=== PATIENT | female | born 1975 | race Caucasian/White ===

== ENCOUNTER 2016-12-18 03:05 | Emergency (ER) | payer BC, OTHER ==
[~2016-12-18] VITALS: Ht 172.7 cm; Wt 167.0 kg
[~2016-12-18 03:05] MED LIST: ALPR0.5T6 PO; ASPI-630 PO; CHOL500016 PO; CHOL500050 PO; CYCL5TAB PO; EMPA10TA PO; ERGO500027 PO; EZET1TAB35 PO; FLUC100T4 PO; FLUO10CA13 PO; FLUO20CA8 PO; FLUO20TA11 PO; FLUO40CA9 PO; FURO20TA3 PO; GABA-586 PO; HYDR-2680 PO; HYDR-2758 PO; HYDR-79 PO; LEVO500T59 PO; LIRA0.6P2 SQ; LOPE2TAB27 PO; METF500T9 PO; METR500T PO; MOME13HF2 IH; MUPI22OI TP; OMEP40CA5 PO; OXYC-323 PO; POTA10CA PO; POTA10TA10 PO; PRAM0.255 PO; PRAS25CA PO; PREGNENOLONE PO; PROG200C15 PO; PROG200C2 PO; THYR30TA PO; THYR60TA PO; TIOT18CA IH; TIZA4CAP PO; TIZA4TAB PO; TOPI200C PO; TOPI200T25 PO; UBID1CAP41 PO; VARE1TAB20 PO
--- NOTE | 2016-12-18 03:42 | PHYS DOC ---
General Chief Complaint: LOWER EXTREMITY EDEMA Stated Complaint: FEET SWELLING Time Seen by MD: 03:06 Source: patient, old records Exam Limitations: no limitations Problems: History of Present Illness Initial Comments Patient is a 41-year-old female who comes in the ED complaining of lower extremity swelling. Patient is morbidly obese and has long history of lower extremity swelling. She takes Lasix for this condition, she says today she noticed increased swelling in both legs with tenderness. She says tonight the swelling seemed to be more than normal and she had moderate to severe bilateral leg pain with activity. She denies cough or dyspnea on exertion or acute shortness of breath. Denies chest pain diaphoresis nausea vomiting arm or neck symptoms headache or focal weakness. No pre-arrival treatment patient states her sugars have remained stable and she has not missed any doses of her Lasix. She continues to smoke cigarettes about a half pack a day and she follows with Dr. Boston MCCORD. Onset: this morning Severity: moderate Pain/Injury Location: bilateral leg, bilateral foot, bilateral ankle Method of Injury: other Modifying Factors: worse with jarring, worse with movement, improves with rest Allergies: Coded Allergies: morphine (Verified Allergy, Intermediate, Itching, 08/10/16) cephalexin (Verified Allergy, Mild, vomiting, 08/10/16) Past Medical History Medical History: other (COPD, diabetes, diverticulitis, hypertension, GERD, hyperlipidemia, hypothyroidism, asthma, morbid obesity, venous insufficiency with lower extremity edema) Surgical History: other (appendectomy, cholecystectomy, hysterectomy, tonsillectomy, tubal ligation) Social History Smoker: cigarettes Alcohol: none Drugs: none Review of Systems Constitutional: denies chills, denies diaphoresis, denies fever, denies malaise Respiratory: denies cough, denies shortness of breath, denies wheezing Cardiovascular: denies chest pain, denies palpitations, denies syncope Gastrointestinal: denies abdominal pain, denies diarrhea, denies nausea, denies vomiting Genitourinary: denies dysuria, denies frequency, denies hematuria Musculoskeletal: see HPI, denies back pain, denies joint swelling, denies neck pain Psychiatric/Neurological: denies headache, denies numbness, denies paresthesia , denies weakness Physical Exam General Appearance: no apparent distress, obese HEENT: normal ENT inspection Neck: non-tender, supple Cardiovascular/Respiratory: normal peripheral pulses (3+ pitting lower extremity edema involving the lower legs no erythema/tenderness/Homans sign negative), no respiratory distress Gastrointestinal: non-tender, no organomegaly (morbidly obese) Back: no CVA tenderness, no vertebral tenderness Legs: bilateral leg normal range of motion, bilateral leg no evidence of injury , bilateral leg soft tissue tenderness, bilateral leg swelling Ankles: bilateral ankle normal range of motion, bilateral ankle no evidence of injury, bilateral ankle soft tissue tenderness, bilateral ankle swelling Feet: bilateral foot normal range of motion, bilateral foot no evidence of injury, bilateral foot soft tissue tenderness, bilateral foot swelling Neurologic/Tendon: normal sensation, normal motor functions, normal tendon functions, responds to pain, no evidence tendon injury Psychiatric: alert, oriented x 3 Skin: normal color, warm/dry Orders, Labs, Meds EKG: Normal sinus rhythm at 77 bpm, nonspecific ST-T changes no STEMI. Interpreted by me Chest AP: Technically difficult study due to body habitus, no acute cardiopulmonary process noted. Interpreted by me Pertinent labs: White blood cells 12.2, potassium 3.4, glucose 208, urinalysis with squamous epithelial contamination await culture and sensitivity. Patient received 40 mg of Lasix IV. Given her low normal potassium 20 mEq of Klor-Con given by mouth as the potassium will lower further with Lasix and insulin administration. Patient has not yet begun to [facility] however her vitals have remained normal and she has no new or progressive symptoms. Patient will be discharged home to [facility], she agrees to follow up with her doctor later this morning if her symptoms do not subside. She was advised to stop smoking. She expressed agreement and understanding of the treatment plan. Departure Time of Disposition: 04:58 Disposition: HOME, SELF-CARE Diagnosis: acute on chronic lower extremity edema Condition: GOOD Patient Instructions: Edema, [id number] Additional Instructions: Elevate your legs and wear MARY JANE hose until swelling subsides. Rest, no strenuous activity. Continue current meds. Follow up with your doctor or Friday for recheck. Return to ED with new or changing symptoms. ARIEL MUÑOZ DO Dec 18, 2016 03:42
[2016-12-18] MEDS: FUROSEMIDE 40 MG/4 ML VIAL IVP ONE (04:00)
[2016-12-18 04:04] LABS: BASO # 0.1 x10^3/uL (0.0-0.2); BASO % 1 % (0-3); EOS # 0.2 x10^3/uL (0.0-0.7); EOS % 2 % (0-3); HEMATOCRIT 45.5 % (36.0-47.0); HEMOGLOBIN 15.4 g/dL (12.0-15.5); LYMPH # 4.9 x10^3/uL (1.0-4.8); LYMPH % 40 % (24-48); MEAN CORPUSCULAR HEMOGLOBIN 32 pg (25-35); MEAN CORPUSCULAR HGB CONC 34 g/dL (31-37); MEAN CORPUSCULAR VOLUME 94 fL (79-100); MONO % 9 % (0-9); NEUT # 5.9 x10^3uL (1.8-7.7); NEUT % 48 % (31-73); PLATELET COUNT 252 x10^3/uL (140-400); RED BLOOD COUNT 4.85 x10^6/uL (3.50-5.40); RED CELL DISTRIBUTION WIDTH 13.7 % (11.5-14.5); WHITE BLOOD COUNT 12.2 x10^3/uL (4.0-11.0)
[2016-12-18 04:12] LABS: BACTERIA,URINE FEW /HPF (0-FEW); BILIRUBIN,URINE NEG (NEG); CLARITY,URINE HAZY; COLOR,URINE YELLOW; GLUCOSE,URINE 500 mg/dL (NEG); NITRITE,URINE NEG (NEG); RBC,URINE 0 /HPF (0-2); SQUAMOUS EPITHELIAL CELL,UR MANY /LPF; UROBILINOGEN,URINE 0.2 mg/dL (0.2 mg/dL)
[2016-12-18 04:27] LABS: ALBUMIN 3.6 g/dL (3.4-5.0); ALBUMIN/GLOBULIN RATIO 0.9 (1.0-1.7); CREATININE 0.8 mg/dL (0.6-1.0); GFR 78.3; MAGNESIUM 1.8 mg/dL (1.8-2.4); POTASSIUM 3.4 mmol/L (3.5-5.1); TOTAL BILIRUBIN 0.5 mg/dL (0.2-1.0); TOTAL PROTEIN 7.8 g/dL (6.4-8.2)
[2016-12-18 04:50] VITALS: BP 119/65
[2016-12-18] MEDS: POTASSIUM CHLORIDE 20 MEQ TABLET.ER. PO ONE (04:53)
--- NOTE | 2016-12-18 07:15 | RAD ---
AP chest, 12/18/2016: History: Lower extremity edema The heart size and pulmonary vascularity are normal. The lungs are clear. There is no evidence of pleural fluid. IMPRESSION: No acute cardiopulmonary abnormality is detected.
--- NOTE | 2016-12-19 11:04 | EKG ---
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
== END 2016-12-18 05:06 | disposition home or self-care (01) ==
LOC: ER 03:05
DX: R60.0 Localized edema (principal); J44.9 Chronic obstructive pulmonary disease, unspecified; E11.9 Type 2 diabetes mellitus without complications; I10 Essential (primary) hypertension; K21.9 Gastro-esophageal reflux disease without esophagitis; E78.5 Hyperlipidemia, unspecified; E03.9 Hypothyroidism, unspecified; E66.01 Morbid (severe) obesity due to excess calories; I87.2 Venous insufficiency (chronic) (peripheral); F17.210 Nicotine dependence, cigarettes, uncomplicated; Z68.43 Body mass index [BMI] 50.0-59.9, adult; Z88.5 Allergy status to narcotic agent; Z88.1 Allergy status to other antibiotic agents
CPT/HCPCS: 36415; 71010; 80053; 81001; 82550; 82947; 83735; 83880; 84484; 85027; 87086; 93005; 96374; 99285; J1940

== ENCOUNTER 2017-03-13 16:42 | Emergency (ER) | payer OTHER ==
[~2017-03-13] VITALS: Ht 172.7 cm; Wt 156.9 kg
[2017-03-13] MEDS ORDERED: IV NORMAL SALINE 1,000ML 1,000 ML IV SCH (17:42)
[2017-03-13] MEDS ORDERED: CONTRAST GIVEN MC PRN (18:00)
[2017-03-13] MEDS ORDERED: IOHEXOL 300 MG/ML 75 ML VIAL. IV ONE (18:15)
[2017-03-13 18:18] LABS: BLOOD UREA NITROGEN 8 mg/dL (7-20); CREATINE KINASE 98 U/L (26-192)
[2017-03-13] MEDS: HYDROmorphone PF 1 MG/ML DISP.SYRIN IV/SQ PRN ×2 (18:41→19:38)
[2017-03-13 18:45] LABS: CALCIUM 8.9 mg/dL (8.5-10.1); CREATININE 0.9 mg/dL (0.6-1.0); GFR 68.3; POTASSIUM 3.9 mmol/L (3.5-5.1)
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
[2017-03-13 20:15] VITALS: BP 133/71
[2017-03-13 21:33] LABS: BACTERIA,URINE MOD /HPF (0-FEW); BILIRUBIN,URINE NEG (NEG); CLARITY,URINE CLOUDY; COLOR,URINE YELLOW; GLUCOSE,URINE NEG (NEG); NITRITE,URINE NEG (NEG); SQUAMOUS EPITHELIAL CELL,UR MANY /LPF; UROBILINOGEN,URINE 0.2 mg/dL (0.2 mg/dL)
[2017-03-13 21:37] LABS: HYALINE CASTS, URINE FEW /HPF
[2017-03-13] MEDS ORDERED: KETOROLAC 30 MG/ML VIAL. IV ONE (22:00)
[2017-03-13] MEDS ORDERED: ORPHENADRINE CITRATE 60 MG/2 ML VIAL. IV ONE (22:00)
[2017-03-13] MEDS ORDERED: fentaNYL PF 100 MCG/2 ML VIAL IM ONE (22:00)
[2017-03-13] MEDS ORDERED: HYDR-79 PO (22:07)
[2017-03-13] MEDS ORDERED: CYCL5TAB PO (22:07)
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
== END 2017-03-13 22:25 | disposition home or self-care (01) ==
LOC: ER 16:42
DX: S09.90XA Unspecified injury of head, initial encounter (principal); S16.1XXA Strain of muscle, fascia and tendon at neck level, initial encounter; S50.02XA Contusion of left elbow, initial encounter; E03.9 Hypothyroidism, unspecified; E11.9 Type 2 diabetes mellitus without complications; E78.5 Hyperlipidemia, unspecified; I10 Essential (primary) hypertension; J44.9 Chronic obstructive pulmonary disease, unspecified; K21.9 Gastro-esophageal reflux disease without esophagitis; N39.0 Urinary tract infection, site not specified; F32.9 Major depressive disorder, single episode, unspecified; M19.90 Unspecified osteoarthritis, unspecified site; F17.210 Nicotine dependence, cigarettes, uncomplicated; Z88.5 Allergy status to narcotic agent; Z88.1 Allergy status to other antibiotic agents; V89.2XXA Person injured in unspecified motor-vehicle accident, traffic, initial encounter; Y93.89 Activity, other specified; Y99.8 Other external cause status; Y92.488 Other paved roadways as the place of occurrence of the external cause
CPT/HCPCS: 36415; 70450; 71010; 72125; 73080; 74177; 80048; 81001; 82550; 84520; 87086; 96361; 96372; 96374; 96375; 96376; 99285; J1170; J1885; J2360; J3010; Q9967; J7030

== ENCOUNTER 2017-03-27 21:52 | Emergency (ER) | payer OTHER ==
[~2017-03-27] VITALS: Ht 172.7 cm; Wt 167.0 kg
[2017-03-27] MEDS ORDERED: ONDANSETRON PF 4 MG/2 ML VIAL. IV ONE (23:00)
[2017-03-27] MEDS ORDERED: IV NORMAL SALINE 1,000ML 1,000 ML IV SCH (23:00)
[2017-03-28] MEDS ORDERED: CONTRAST GIVEN MC PRN (00:30)
[2017-03-28] MEDS ORDERED: IOHEXOL 300 MG/ML 75 ML VIAL. IV ONE (00:30)
[2017-03-28 00:33] LABS: BASO % 1 % (0-3); EOS # 0.2 x10^3/uL (0.0-0.7); EOS % 2 % (0-3); HEMATOCRIT 48.4 % (36.0-47.0); HEMOGLOBIN 16.9 g/dL (12.0-15.5); LYMPH # 1.3 x10^3/uL (1.0-4.8); LYMPH % 12 % (24-48); MEAN CORPUSCULAR HEMOGLOBIN 33 pg (25-35); MEAN CORPUSCULAR HGB CONC 35 g/dL (31-37); MEAN CORPUSCULAR VOLUME 94 fL (79-100); MONO # 0.5 x10^3/uL (0.0-1.1); MONO % 5 % (0-9); NEUT # 8.5 x10^3uL (1.8-7.7); NEUT % 81 % (31-73); PLATELET COUNT 210 x10^3/uL (140-400); RED BLOOD COUNT 5.16 x10^6/uL (3.50-5.40); RED CELL DISTRIBUTION WIDTH 13.4 % (11.5-14.5); WHITE BLOOD COUNT 10.5 x10^3/uL (4.0-11.0)
[2017-03-28 00:40] LABS: ALBUMIN 3.4 g/dL (3.4-5.0); ALBUMIN/GLOBULIN RATIO 0.8 (1.0-1.7); CALCIUM 9.1 mg/dL (8.5-10.1); GFR 60.5; POTASSIUM 3.8 mmol/L (3.5-5.1); TOTAL BILIRUBIN 0.6 mg/dL (0.2-1.0); TOTAL PROTEIN 7.6 g/dL (6.4-8.2)
[2017-03-28] MEDS ORDERED: KETOROLAC 30 MG/ML VIAL. ONE (00:42)
[2017-03-28] MEDS ORDERED: KETOROLAC 60 MG/2 ML VIAL. IM ONE (00:45)
[2017-03-28 01:04] LABS: BILIRUBIN,URINE NEG (NEG); CLARITY,URINE HAZY; COLOR,URINE AMBER; GLUCOSE,URINE NEG (NEG); NITRITE,URINE NEG (NEG); RBC,URINE OCC /HPF (0-2); UROBILINOGEN,URINE 0.2 mg/dL (0.2 mg/dL)
[2017-03-28 01:05] LABS: BACTERIA,URINE FEW /HPF (0-FEW); SQUAMOUS EPITHELIAL CELL,UR MOD /LPF; WBC,URINE OCC /HPF (0-4); YEAST,URINE PRESENT /HPF
[2017-03-28] MEDS ORDERED: ONDA4TAB12 SL (01:22)
[2017-03-28] MEDS ORDERED: HYOS0.1265 SL (01:22)
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
--- NOTE | 2017-03-28 01:29 | RAD ---
CT abdomen and pelvis without contrast 03/27/2017 CLINICAL INDICATION: Abdominal pain, nausea, vomiting and diarrhea. COMPARISON: CT abdomen and pelvis 03/13/2017 TECHNIQUE: Multiple CT images of the abdomen and pelvis were obtained without contrast according to standard protocol. *One or more of the following individualized dose reduction techniques were utilized for this examination: 1. Automated exposure control. 2. Adjustment of the mA and/or kV according to patient size. 3. Use of iterative reconstruction technique. Abdomen and pelvis findings: Heart size is normal and visualized lung bases are clear. There is mild diffuse hepatic steatosis with a few punctate calcified granulomas. Prior cholecystectomy. Spleen is normal in size with multiple punctate splenic calcified granulomas. Unenhanced contours of the adrenal glands, pancreas are grossly unremarkable. 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 Small and large bowel loops are normal in caliber without obstruction. Postsurgical changes at the base of the cecum compatible with prior appendectomy. No bowel obstruction. No pneumoperitoneum. No intra-abdominal loculated gas/fluid collection. Mild distended unopacified urinary bladder unremarkable. Prior hysterectomy with the vaginal cuff within normal limits. There are no destructive osseous lesions. IMPRESSION: No noncontrast evidence of acute abdominal or pelvic process. Electronically signed by: Colin Hirsch MD (03/28/2017 1:26 AM) [facility]
[2017-03-28 01:35] VITALS: BP 132/89
== END 2017-03-28 01:45 | disposition home or self-care (01) ==
LOC: ER 21:52
DX: K52.9 Noninfective gastroenteritis and colitis, unspecified (principal); G89.29 Other chronic pain; E03.9 Hypothyroidism, unspecified; E11.9 Type 2 diabetes mellitus without complications; E78.00 Pure hypercholesterolemia, unspecified; J44.9 Chronic obstructive pulmonary disease, unspecified; Z90.49 Acquired absence of other specified parts of digestive tract; Z90.710 Acquired absence of both cervix and uterus; Z88.1 Allergy status to other antibiotic agents; Z88.5 Allergy status to narcotic agent
CPT/HCPCS: 36415; 74176; 80053; 81001; 83690; 85025; 96372; 99285; J1885

== ENCOUNTER 2017-08-16 22:47 | Emergency (ER) | payer OTHER ==
[~2017-08-16] VITALS: Ht 160 cm; Wt 168.6 kg
[~2017-08-16 22:47] MED LIST changes: +HYOS0.1265 SL; +ONDA4TAB12 SL; -TOPI200C PO; +TOPI200C6 PO
--- NOTE | 2017-08-16 23:19 | ED.ADGEN ---
Past History Past Medical History: Asthma, COPD, Diverticulitis, Diabetes, Gallstones, High Cholesterol, Hypothyroid, Other Past Surgical History: Appendectomy, Cholecystectomy, Colectomy, Hysterectomy, Tonsillectomy, Other Alcohol Use: None Drug Use: None Adult General Chief Complaint Chief Complaint " I ve not been right since Fri.. I seen Dr Mead... he said I had a virus... I ve been exposed to Strept with my son. and this virus... .. and I am getting short of breath..tired, dizzy, chills, sore throat..." HPI HPI Patient is a 42 year old female who presents with above hx and complaints dizzy , fever or chills, myalgia, arthralgia, malaise, pharyngitis, and fatigue. Patient has been exposed to strep through her son. No recent travel. Hx. of COPD, DM, Asthma, HTN, Elevated Cholesterol, Arthritis . Patient normally follows with Dr. Mead . Review of Systems Review of Systems Constitutional: Hx fever or chills [] Eyes: Denies change in visual acuity, redness, or eye pain [] HENT: Hx. of nasal congestion and sore throat [] Respiratory: Hx of cough and wheezing Cardiovascular: No additional information not addressed in HPI [] GI: Denies abdominal pain, nausea, vomiting, bloody stools or diarrhea [] : Denies dysuria or hematuria [] Musculoskeletal: Chronic back pain or joint pain [] Integument: Denies rash or skin lesions [] Neurologic: Denies headache, focal weakness or sensory changes [] Endocrine: Denies polyuria or polydipsia [] All other systems were reviewed and found to be within normal limits, except as documented in this note. Family History Family History Son with Strept. Current Medications Current Medications Current Medications Medications (Trade) Dose Ordered Sig/Jack Start Time Stop Time Status Last Admin Dose Admin Amoxicillin (Amoxil) 500 mg 1X ONCE 08/17/17 02:30 08/17/17 03:36 DC 08/17/17 03:03 500 MG Aspirin (Children'S Aspirin) 324 mg 1X ONCE 08/17/17 00:15 08/17/17 00:20 DC 08/17/17 03:04 324 MG Diphenhydramine HCl (Benadryl) 50 mg 1X ONCE 08/17/17 02:30 2/11/18 03:36 DC 08/17/17 03:04 50 MG Magnesium Hydroxide (Milk Of Magnesia) 2,400 mg 1X ONCE 08/17/17 04:30 08/17/17 04:57 DC 08/17/17 04:29 2,400 MG Prednisone (Prednisone) 60 mg 1X ONCE 08/17/17 02:30 08/17/17 03:36 DC 08/17/17 03:04 60 MG See Nursing for home meds Allergies Allergies Allergies Coded Allergies Type Severity Reaction Last Updated Verified morphine Allergy Intermediate Itching 08/10/16 Yes cephalexin Allergy Mild vomiting 08/10/16 Yes Physical Exam Physical Exam Constitutional: Moderately acute distress, non-toxic appearance. [] HENT: Normocephalic, atraumatic, bilateral external ears normal, oropharynx moist, injected pharynx, no oral exudates, nose rhinorrhea Eyes: PERRLA, EOMI, conjunctiva normal, no discharge. [] Neck: Normal range of motion, no tenderness, supple, no stridor. [] Cardiovascular:Heart rate regular rhythm, no murmur [] Lungs & Thorax: Bilateral breath sounds clear to auscultation [] Abdomen: Bowel sounds normal, soft, no tenderness, no masses, no pulsatile masses. Obese. Old surgical scars Skin: Warm, dry, no erythema, no rash. [] Back: No tenderness, no CVA tenderness. [] Extremities: No tenderness, no cyanosis, no clubbing, ROM intact, no edema. [] Neurologic: Alert and oriented X 3, normal motor function, normal sensory function, no focal deficits noted. [] Psychologic: Affect anxious, judgement normal, mood normal. [] Current Patient Data Vital Signs Vital Signs Date Time Temp Pulse Resp B/P (MAP) Pulse Ox O2 Delivery O2 Flow Rate FiO2 08/17/17 04:50 98.2 99 20 124/60 (81) 93 Room Air Lab Results Laboratory Tests Test 08/17/17 02:45 08/17/17 03:00 08/17/17 03:29 08/17/17 03:49 Urine Opiates Screen Neg (NEG) Urine Methadone Screen Neg (NEG) Urine Barbiturates Neg (NEG) Urine Phencyclidine Screen Neg (NEG) Urine Amphetamine/Methamphetamine Neg (NEG) Urine Benzodiazepines Screen Neg (NEG) Urine Cocaine Screen Neg (NEG) Urine Cannabinoids Screen Neg (NEG) Urine Ethyl Alcohol Neg (NEG) Influenza Type A (Rapid) Negative (NEGATIVE) Influenza Type B (Rapid) Negative (NEGATIVE) Group A Streptococcus Rapid Positive (NEGATIVE) Urine Collection Type Void Urine Color Yellow Urine Clarity Clear Urine pH 5.0 Urine Specific [place] <=1.005 Urine Protein Neg (NEG-TRACE) Urine Glucose (UA) Neg mg/dL (NEG) Urine Ketones (Stick) Neg mg/dL (NEG) Urine Blood Trace (NEG) Urine Nitrite Neg (NEG) Urine Bilirubin Neg (NEG) Urine Urobilinogen Dipstick 0.2 mg/dL (0.2 mg/dL) Urine Leukocyte Esterase Neg (NEG) Urine RBC 0 /HPF (0-2) Urine WBC 0 /HPF (0-4) Urine Squamous Epithelial Cells Occ /LPF Urine Bacteria 0 /HPF (0-FEW) Serum Test, Qualitative Negative (NEG) Sodium Level 138 mmol/L (136-145) Potassium Level 3.7 mmol/L (3.5-5.1) Chloride Level 101 mmol/L (98-107) Carbon Dioxide Level 28 mmol/L (21-32) Anion Gap 9 (6-14) Blood Urea Nitrogen 12 mg/dL (7-20) Creatinine 0.8 mg/dL (0.6-1.0) Estimated GFR (Cockcroft-Gault) 77.9 Glucose Level 253 mg/dL (70-99) H Calcium Level 8.4 mg/dL (8.5-10.1) L Magnesium Level 1.6 mg/dL (1.8-2.4) L Total Bilirubin 0.2 mg/dL (0.2-1.0) Direct Bilirubin < 0.1 mg/dL (0.0-0.2) Aspartate Amino Transferase (AST) 27 U/L (15-37) Alanine Aminotransferase (ALT) 63 U/L (14-59) H Alkaline Phosphatase 83 U/L (46-116) Creatine Kinase 64 U/L (26-192) Creatine Kinase MB (Mass) < 0.5 ng/mL (0.0-3.6) Creatine Kinase MB Relative Index 0.8 % (0-4) Troponin I Quantitative < 0.017 ng/mL (0-0.055) FO-Xls-G-Type Natriuretic Peptide 39 pg/mL (0-124) Total Protein 6.5 g/dL (6.4-8.2) Albumin 3.2 g/dL (3.4-5.0) L Lipase 146 U/L (73-393) White Blood Count 9.2 x10^3/uL (4.0-11.0) Red Blood Count 4.56 x10^6/uL (3.50-5.40) Hemoglobin 14.7 g/dL (12.0-15.5) Hematocrit 42.7 % (36.0-47.0) Mean Corpuscular Volume 94 fL (79-100) Mean Corpuscular Hemoglobin 32 pg (25-35) Mean Corpuscular Hemoglobin Concent 34 g/dL (31-37) Red Cell Distribution Width 13.8 % (11.5-14.5) Platelet Count 232 x10^3/uL (140-400) Neutrophils (%) (Auto) 48 % (31-73) Lymphocytes (%) (Auto) 43 % (24-48) Monocytes (%) (Auto) 7 % (0-9) Eosinophils (%) (Auto) 2 % (0-3) Basophils (%) (Auto) 1 % (0-3) Neutrophils # (Auto) 4.4 x10^3uL (1.8-7.7) Lymphocytes # (Auto) 4.0 x10^3/uL (1.0-4.8) Monocytes # (Auto) 0.6 x10^3/uL (0.0-1.1) Eosinophils # (Auto) 0.2 x10^3/uL (0.0-0.7) Basophils # (Auto) 0.1 x10^3/uL (0.0-0.2) Prothrombin Time 10.1 SEC (9.4-11.4) Prothrombin Time INR 1.0 (0.9-1.1) PTT 22 SEC (23-33) L D-Dimer (Shanita) 0.32 mg/L (0.00-0.50) EKG EKG My interpretation EKG shows a sinus rhythm at 72 bpm. No acute morphology[] Radiology/Procedures Radiology/Procedures My interpretation of chest x-ray shows no acute cardiopulmonary findings. Some mild cephalization. Linear atelectasis atelectasis[] Course & Med Decision Making Course & Med Decision Making Pertinent Labs and Imaging studies reviewed. (See chart for details). Keep follow up with primary . Complete a course of doxycycline, if pharyngitis does not resolved take Amoxicillin 500 three times a day. Prednisone 50 mg day. Benadryl 50 up 4 x day. Albuterol four times a day. Gargle with Listerine 4 x day. [] Final Impression Final Impression 1. Dizzy[] 2. Strept. Pharyngitis 3. DM- 253 glu 4. Hypomagnesium 5. Malnutrition Alb. 3.2 Problems: Dragon Disclaimer Dragon Disclaimer This electronic medical record was generated, in whole or in part, using a voice recognition dictation system. SYL HARPER MD Aug 16, 2017 23:19
[2017-08-17] MEDS ORDERED: ASPIRIN 81 MG TAB.CHEW PO ONE (00:15)
--- NOTE | 2017-08-17 01:52 | RAD ---
INDICATION: Headache, dizziness, leg swelling today. No prior exams for comparison
COMPARISON: March 13, 2017 TECHNIQUE: Axial CT images obtained through the head without intravenous contrast. One or more of the following individualized dose reduction techniques were utilized for this examination: 1. Automated exposure control; 2. Adjustment of the mA and/or kV according to patient size; 3. Use of iterative reconstruction technique. FINDINGS: No intracranial hemorrhage. No midline shift. Basal cisterns patent. Ventricles and sulci are unremarkable. No acute osseous abnormality. Orbits and paranasal sinuses unremarkable. IMPRESSION: 1. No acute intracranial hemorrhage. Electronically signed by: Héctor Nash MD (08/17/2017 1:49 AM) [email or web address]
--- NOTE | 2017-08-17 01:57 | EKG ---
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
[2017-08-17] MEDS ORDERED: predniSONE 20 MG TABLET PO ONE (02:30)
[2017-08-17] MEDS ORDERED: AMOXICILLIN 250 MG CAPSULE PO ONE (02:30)
[2017-08-17] MEDS ORDERED: diphenhydrAMINE HCL 25 MG CAPSULE PO ONE (02:30)
[2017-08-17 03:08] LABS: INFLUENZA A PATIENT NEGATIVE (NEGATIVE); INFLUENZA B PATIENT NEGATIVE (NEGATIVE)
[2017-08-17 03:25] LABS: BARBITURATES NEG (NEG); BENZODIAZEPINES NEG (NEG); CANNABINOIDS NEG (NEG); COCAINE NEG (NEG); METHADONE NEG (NEG); OPIATES NEG (NEG); PHENCYCLIDINE NEG (NEG)
[2017-08-17 03:31] LABS: AMPHETAMINE/METHAMPHETAMINE NEG (NEG)
[2017-08-17 03:35] LABS: BACTERIA,URINE 0 /HPF (0-FEW); BILIRUBIN,URINE NEG (NEG); CLARITY,URINE CLEAR; COLOR,URINE YELLOW; GLUCOSE,URINE NEG (NEG); NITRITE,URINE NEG (NEG); RBC,URINE 0 /HPF (0-2); SQUAMOUS EPITHELIAL CELL,UR OCC /LPF; UROBILINOGEN,URINE 0.2 mg/dL (0.2 mg/dL); WBC,URINE 0 /HPF (0-4)
[2017-08-17 03:37] LABS: PREG TEST PT QUAL NEGATIVE (NEG)
[2017-08-17 04:02] LABS: ALBUMIN 3.2 g/dL (3.4-5.0); ALK PHOS 83 U/L (46-116); ALT (SGPT) 63 U/L (14-59); ANION GAP 9 (6-14); AST (SGOT) 27 U/L (15-37); BLOOD UREA NITROGEN 12 mg/dL (7-20); CALCIUM 8.4 mg/dL (8.5-10.1); CARBON DIOXIDE 28 mmol/L (21-32); CHLORIDE 101 mmol/L (98-107); CREATINE KINASE 64 U/L (26-192); CREATININE 0.8 mg/dL (0.6-1.0); GFR 77.9; GLUCOSE 253 mg/dL (70-99); LIPASE 146 U/L (73-393); MAGNESIUM 1.6 mg/dL (1.8-2.4); POTASSIUM 3.7 mmol/L (3.5-5.1); SODIUM 138 mmol/L (136-145); TOTAL BILIRUBIN 0.2 mg/dL (0.2-1.0); TOTAL PROTEIN 6.5 g/dL (6.4-8.2)
[2017-08-17 04:12] LABS: DIRECT BILIRUBIN < 0.1 mg/dL (0.0-0.2)
[2017-08-17] MEDS ORDERED: ONDA8TAB12 PO (04:16)
[2017-08-17] MEDS ORDERED: AMOX500C PO (04:16)
[2017-08-17] MEDS ORDERED: HYDR-79 PO (04:16)
[2017-08-17] MEDS ORDERED: PRED50TA PO (04:16)
[2017-08-17] MEDS ORDERED: ALBU18HF IH (04:16)
[2017-08-17 04:25] LABS: BASO # 0.1 x10^3/uL (0.0-0.2); BASO % 1 % (0-3); EOS # 0.2 x10^3/uL (0.0-0.7); EOS % 2 % (0-3); HEMATOCRIT 42.7 % (36.0-47.0); HEMOGLOBIN 14.7 g/dL (12.0-15.5); LYMPH % 43 % (24-48); MEAN CORPUSCULAR HEMOGLOBIN 32 pg (25-35); MEAN CORPUSCULAR HGB CONC 34 g/dL (31-37); MEAN CORPUSCULAR VOLUME 94 fL (79-100); MONO # 0.6 x10^3/uL (0.0-1.1); MONO % 7 % (0-9); NEUT # 4.4 x10^3uL (1.8-7.7); NEUT % 48 % (31-73); PLATELET COUNT 232 x10^3/uL (140-400); RED BLOOD COUNT 4.56 x10^6/uL (3.50-5.40); RED CELL DISTRIBUTION WIDTH 13.8 % (11.5-14.5); WHITE BLOOD COUNT 9.2 x10^3/uL (4.0-11.0)
[2017-08-17] MEDS ORDERED: MAGNESIUM HYDROXIDE 2,400 MG/30 ML ORAL.SUSP. PO ONE (04:30)
[2017-08-17 04:50] VITALS: BP 124/60
--- NOTE | 2017-08-17 08:31 | RAD ---
PA AND LATERAL CHEST RADIOGRAPH Clinical Indication: dyspnea. Comparison: AP chest 03/13/2017. Findings: The cardiomediastinal silhouette is normal. Pulmonary vasculature is normal. There is minimal linear scarring in the lingula. The lungs are clear. No pleural effusion or pneumothorax is seen. There is no acute bone abnormality. IMPRESSION: No acute cardiopulmonary process.
== END 2017-08-17 04:54 | disposition home or self-care (01) ==
LOC: ER 22:47
DX: R42 Dizziness and giddiness (principal); J02.0 Streptococcal pharyngitis; E11.9 Type 2 diabetes mellitus without complications; E83.42 Hypomagnesemia; E46 Unspecified protein-calorie malnutrition; J44.9 Chronic obstructive pulmonary disease, unspecified; E78.00 Pure hypercholesterolemia, unspecified; E03.9 Hypothyroidism, unspecified; I10 Essential (primary) hypertension; G89.29 Other chronic pain; Z88.5 Allergy status to narcotic agent; Z88.1 Allergy status to other antibiotic agents
CPT/HCPCS: 36415; 70450; 71046; 80048; 80076; 80307; 81001; 82553; 83690; 83735; 83880; 84443; 84484; 84703; 85025; 85379; 85610; 85730; 87040; 87804; 87880; 93005; 99285; J7512; Q0163; G0479

== ENCOUNTER 2018-04-12 00:25 | Emergency (ER) | payer OTHER ==
[~2018-04-12] VITALS: Ht 160 cm; Wt 160.2 kg
[~2018-04-12 00:25] MED LIST changes: +ALBU18HF IH; +AMOX500C PO; +ONDA8TAB12 PO; +PRED50TA PO
[2018-04-12] MEDS ORDERED: IBUP800T19 PO (00:56)
--- NOTE | 2018-04-12 01:09 | PHYS DOC ---
Past History Past Medical History: Asthma, COPD, Diverticulitis, Diabetes, Gallstones, High Cholesterol, Hypothyroid, Other Past Surgical History: Appendectomy, Cholecystectomy, Colectomy, Hysterectomy, Tonsillectomy Alcohol Use: None Drug Use: None Adult General Chief Complaint Chief Complaint: LOWER EXT PAIN HPI HPI 42-year-old female presents with right lower extremity pain. Patient states that for about the last 1 week she has had an aching sensation in her right ankle and her right calf. When she plantar flexes her foot feels like there is pain in the back of the leg. When she dorsiflexes the foot it hurts on the top of the foot as well as all of the back of her calf. She denies any trauma or known injury. She did travel from [place] back to [place] recently by car. The pain today is worse than other days. She has been up and about walking on it more than usual. She believes the right calf is swollen compared to the left. She denies fever or chills. She has no history of DVT or PE. No history of clotting disorders. Review of Systems Review of Systems Constitutional: Denies fever or chills [] Eyes: Denies change in visual acuity, redness, or eye pain [] HENT: Denies nasal congestion or sore throat [] Respiratory: Denies cough or shortness of breath [] Cardiovascular: No additional information not addressed in HPI [] GI: Denies abdominal pain, nausea, vomiting, bloody stools or diarrhea [] : Denies dysuria or hematuria [] Musculoskeletal: Right ankle and lower leg pain[] Integument: Denies rash or skin lesions [] Neurologic: Denies headache, focal weakness or sensory changes [] Endocrine: Denies polyuria or polydipsia [] All other systems were reviewed and found to be within normal limits, except as documented in this note. Allergies Allergies Allergies Coded Allergies Type Severity Reaction Last Updated Verified morphine Allergy Intermediate Itching 04/12/18 Yes cephalexin Allergy Mild vomiting 04/12/18 Yes Physical Exam Physical Exam Constitutional: Well developed, morbidly obese, well nourished, no acute distress, non-toxic appearance. [] HENT: Normocephalic, atraumatic, bilateral external ears normal, oropharynx moist, no oral exudates, nose normal. [] Eyes: PERRLA, EOMI, conjunctiva normal, no discharge. [] Neck: Normal range of motion, no tenderness, supple, no stridor. [] Cardiovascular:Heart rate regular rhythm, no murmur [] Lungs & Thorax: Bilateral breath sounds clear to auscultation [] Abdomen: Bowel sounds normal, soft, no tenderness, no masses, no pulsatile masses. [] Skin: Warm, dry, no erythema, no rash. [] Back: No tenderness, no CVA tenderness. [] Extremities: Positive Homans on the right, right calf greater diameter than left. Tenderness over the medial and lateral malleoli.[] Neurologic: Alert and oriented X 3, normal motor function, normal sensory function, no focal deficits noted. [] Psychologic: Affect normal, judgement normal, mood normal. [] Current Patient Data Vital Signs Vital Signs Date Time Temp Pulse Resp B/P (MAP) Pulse Ox O2 Delivery O2 Flow Rate FiO2 04/12/18 00:25 97.8 77 20 143/76 (98) 96 Room Air EKG EKG [] Radiology/Procedures Radiology/Procedures [] Impressions: Right lower extremity venous Doppler: Reason for examination: Right leg pain. Evaluate for venous thrombosis. The right lower extremity venous system was evaluated from the common femoral and greater saphenous veins distally to the calf veins with grayscale imaging, color-flow imaging and spectral analysis. There appears to be normal blood flow without deep venous thrombosis evident. There is normal response of the venous system to compression and augmentation. IMPRESSION: No deep venous thrombosis in the right lower extremity. Electronically signed by: Jasmin Green MD (04/12/2018 2:17 AM) [email or web address] DICTATED AND SIGNED BY: JASMIN GREEN MD DATE: 04/12/18215 CC: WILL BRANTLEY DO; YOKO ALLISON MD Right ankle 3 views: Reason for examination: right ankle pain and swelling. No history of injury. No fracture or dislocation is seen. The bone density is normal. No abnormal periosteal reaction is seen. Joint space is maintained. IMPRESSION: No acute bony abnormality at the right ankle. Electronically signed by: Jasmin Green MD (04/12/2018 2:24 AM) [email or web address] DICTATED AND SIGNED BY: JASMIN GREEN MD DATE: 04/12/18222 CC: WILL BRANTLEY DO; YOKO ALLISON MD Course & Med Decision Making Course & Med Decision Making Pertinent Labs and Imaging studies reviewed. (See chart for details) The patient's DVT study is negative. I have given her one [place] 5/325 for pain. Her ankle x-ray is also negative. The patient's labs are negative except for low potassium. The patient typically has a similarly low potassium according to her chart.. I do not have a reason for the patient's pain. It is highly likely to be home musculoskeletal sprain or strain. I will give her a short course of [place] 5/325 for breakthrough pain. If she continues to have difficulty she should seek follow-up with her PCP and consider orthopedic referral. [] Dragon Disclaimer Dragon Disclaimer This electronic medical record was generated, in whole or in part, using a voice recognition dictation system. Departure Departure: Referrals: YOKO ALLISON MD (PCP) Scripts Hydrocodone Bit/Acetaminophen (NORCO 5-325 TABLET) 1 Each Tablet 1 TAB PO PRN Q6HRS PRN for PAIN, #10 TAB 0 Refills Prov: WILL BRANTLEY DO 04/12/18 WILL BRANTLEY DO Apr 12, 2018 01:09
--- NOTE | 2018-04-12 02:20 | RAD ---
Right lower extremity venous Doppler: Reason for examination: Right leg pain. Evaluate for venous thrombosis. The right lower extremity venous system was evaluated from the common femoral and greater saphenous veins distally to the calf veins with grayscale imaging, color-flow imaging and spectral analysis. There appears to be normal blood flow without deep venous thrombosis evident. There is normal response of the venous system to compression and augmentation. IMPRESSION: No deep venous thrombosis in the right lower extremity. Electronically signed by: Jasmin Roach MD (04/12/2018 2:17 AM) [id number]
--- NOTE | 2018-04-12 02:27 | RAD ---
Right ankle 3 views: Reason for examination: right ankle pain and swelling. No history of injury. No fracture or dislocation is seen. The bone density is normal. No abnormal periosteal reaction is seen. Joint space is maintained. IMPRESSION: No acute bony abnormality at the right ankle. Electronically signed by: Jasmin Roach MD (04/12/2018 2:24 AM) [id number]
[2018-04-12 02:44] LABS: BASO # 0.1 x10^3/uL (0.0-0.2); BASO % 1 % (0-3); EOS # 0.2 x10^3/uL (0.0-0.7); EOS % 2 % (0-3); HEMATOCRIT 47.1 % (36.0-47.0); HEMOGLOBIN 16.1 g/dL (12.0-15.5); LYMPH # 4.3 x10^3/uL (1.0-4.8); LYMPH % 41 % (24-48); MEAN CORPUSCULAR HEMOGLOBIN 32 pg (25-35); MEAN CORPUSCULAR HGB CONC 34 g/dL (31-37); MEAN CORPUSCULAR VOLUME 93 fL (79-100); MONO # 0.7 x10^3/uL (0.0-1.1); MONO % 7 % (0-9); NEUT # 5.2 x10^3uL (1.8-7.7); NEUT % 50 % (31-73); PLATELET COUNT 225 x10^3/uL (140-400); RED BLOOD COUNT 5.04 x10^6/uL (3.50-5.40); RED CELL DISTRIBUTION WIDTH 14.4 % (11.5-14.5); WHITE BLOOD COUNT 10.5 x10^3/uL (4.0-11.0)
[2018-04-12] MEDS ORDERED: HYDROcodone/APAP 5/325MG 1 TAB TABLET PO ONE (02:45)
[2018-04-12 02:59] LABS: ALBUMIN 3.3 g/dL (3.4-5.0); ALBUMIN/GLOBULIN RATIO 0.8 (1.0-1.7); CALCIUM 9.1 mg/dL (8.5-10.1); CREATININE 0.8 mg/dL (0.6-1.0); GFR 77.9; POTASSIUM 3.2 mmol/L (3.5-5.1); TOTAL BILIRUBIN 0.3 mg/dL (0.2-1.0); TOTAL PROTEIN 7.2 g/dL (6.4-8.2)
[2018-04-12 03:00] VITALS: BP 130/68
[2018-04-12] MEDS ORDERED: HYDR-971 PO (03:04)
== END 2018-04-12 03:11 | disposition home or self-care (01) ==
LOC: ER 00:25
DX: M79.604 Pain in right leg (principal); M25.571 Pain in right ankle and joints of right foot; R22.31 Localized swelling, mass and lump, right upper limb; E87.6 Hypokalemia; J44.9 Chronic obstructive pulmonary disease, unspecified; E11.9 Type 2 diabetes mellitus without complications; E78.00 Pure hypercholesterolemia, unspecified; E03.9 Hypothyroidism, unspecified; Z88.5 Allergy status to narcotic agent; Z88.1 Allergy status to other antibiotic agents
CPT/HCPCS: 36415; 73610; 80053; 85025; 93971; 99285-25

== ENCOUNTER 2018-09-24 00:34 | Emergency (ER) | payer BC, OTHER ==
[~2018-09-24] VITALS: Ht 172.7 cm; Wt 160.2 kg
[~2018-09-24 00:34] MED LIST changes: -ALBU18HF IH; +ALBU2.5V8 IH; +HYDR-1179 PO; +HYDR-2155 PO; -HYDR-2758 PO; +HYDR-3165 PO; -HYDR-79 PO; +IBUP800T19 PO; -OXYC-323 PO; +OXYC1TAB15 PO
[2018-09-24 00:57] VITALS: BP 159/107
[2018-09-24] MEDS ORDERED: KETOROLAC 60 MG/2 ML VIAL. IM ONE (01:00)
--- NOTE | 2018-09-24 01:00 | ED.ADGEN ---
Past History Past Medical History: Asthma, COPD, Diverticulitis, Diabetes, Gallstones, GERD , High Cholesterol, Hypertension, Hypothyroid, Other Past Surgical History: Appendectomy, Cholecystectomy, Colectomy, Hysterectomy, Tonsillectomy, Other Alcohol Use: None Drug Use: None Adult General Chief Complaint Chief Complaint ankle pain HPI HPI 43 years old female presented to the emergency department with left ankle pain after fall stating that she twisted her left ankle she is able to ambulate able to go for again however warn her was examined in her ankle she felt severe pain and she would like her ankle to be checked. able to move her ankle in all direction Review of Systems Review of Systems Constitutional: Denies fever or chills [] Eyes: Denies change in visual acuity, redness, or eye pain [] HENT: Denies nasal congestion or sore throat [] Respiratory: Denies cough or shortness of breath [] Cardiovascular: No additional information not addressed in HPI [] GI: Denies abdominal pain, nausea, vomiting, bloody stools or diarrhea [] : Denies dysuria or hematuria [] Current Medications Current Medications Current Medications Medications (Trade) Dose Ordered Sig/Jack Start Time Stop Time Status Last Admin Dose Admin Ketorolac Tromethamine (Toradol Im) 60 mg 1X ONCE 09/24/18 01:00 09/24/18 01:01 UNV Allergies Allergies Allergies Coded Allergies Type Severity Reaction Last Updated Verified morphine Allergy Intermediate Itching 04/12/18 Yes cephalexin Allergy Mild vomiting 04/12/18 Yes Physical Exam Physical Exam Constitutional: Well developed, well nourished, no acute distress, non-toxic appearance. [] HENT: Normocephalic, atraumatic, bilateral external ears normal, oropharynx moist, no oral exudates, nose normal. [] Eyes: PERRLA, EOMI, conjunctiva normal, no discharge. [] Neck: Normal range of motion, no tenderness, supple, no stridor. [] Cardiovascular:Heart rate regular rhythm, no murmur [] Lungs & Thorax: Bilateral breath sounds clear to auscultation [] Abdomen: Bowel sounds normal, soft, no tenderness, no masses, no pulsatile masses. [] Skin: Warm, dry, no erythema, no rash. [] Back: No tenderness, no CVA tenderness. [] Extremities: Left ankle Stender minimal swelling no restriction of movement Neurologic: Alert and oriented X 3, normal motor function, normal sensory function, no focal deficits noted. [] Psychologic: Affect normal, judgement normal, mood normal. [] EKG EKG [] Radiology/Procedures Radiology/Procedures [] Course & Med Decision Making Course & Med Decision Making Pertinent Labs and Imaging studies reviewed. (See chart for details) [] Final Impression Final Impression [] Problems: (1) Left ankle sprain Qualifiers: Qualified Codes: S93.402A - Sprain of unspecified ligament of left ankle, initial encounter Dragon Disclaimer Dragon Disclaimer This electronic medical record was generated, in whole or in part, using a voice recognition dictation system. KAYE GARCIA MD Sep 24, 2018 01:00
--- NOTE | 2018-09-24 08:15 | RAD ---
4 views left knee 09/24/2018 1:08 AM Indication: fall, left knee pain Comparison: None Findings: There is no acute fracture or dislocation. Articular surfaces are uninterrupted and smooth. Soft tissues are unremarkable. Impression: No evidence of acute osseous abnormality. Electronically signed by: Quintin Coto MD (09/24/2018 8:12 AM) [id number]
--- NOTE | 2018-09-24 08:19 | RAD ---
3 views left ankle. 09/24/2018 1:03 AM Indication: fall, ankle pain Comparison: None Findings: There is no acute appearing fracture or dislocation. There appears to be sealed chronic fracture of the posterior malleolus is noted. Spurring at the insertion of the plantar fascia on the calcaneus noted. Small disc fragment insertion of the Achilles tendon noted. Soft tissues are unremarkable. Impression: No evidence of acute osseous abnormality. Electronically signed by: Quintin Coto MD (09/24/2018 8:16 AM) [id number]
== END 2018-09-24 02:00 | disposition home or self-care (01) ==
LOC: ER 00:34
DX: S93.402A Sprain of unspecified ligament of left ankle, initial encounter (principal); J44.9 Chronic obstructive pulmonary disease, unspecified; E11.9 Type 2 diabetes mellitus without complications; K21.9 Gastro-esophageal reflux disease without esophagitis; E78.00 Pure hypercholesterolemia, unspecified; I10 Essential (primary) hypertension; E03.9 Hypothyroidism, unspecified; Z88.5 Allergy status to narcotic agent; Z88.1 Allergy status to other antibiotic agents; W18.39XA Other fall on same level, initial encounter; Y93.89 Activity, other specified; Y92.89 Other specified places as the place of occurrence of the external cause; Y99.8 Other external cause status
CPT/HCPCS: 29515; 73562; 73610; 96372; 99283; J1885

== ENCOUNTER 2019-12-16 13:52 | Emergency (ER) | payer BC, OTHER ==
[~2019-12-16] VITALS: Ht 172.7 cm; Wt 160.0 kg
[~2019-12-16 13:52] MED LIST changes: +FLUO20CA20 PO; -FLUO20CA8 PO; +METF-658 PO; -METF500T9 PO; +OMEP40CA45 PO; -OMEP40CA5 PO; +PROG200C10 PO; -PROG200C2 PO; -TIZA4TAB PO; +TIZA4TAB2 PO
[2019-12-16] MEDS ORDERED: oxyCODONE/APAP 5/325 1 TAB TABLET PO ONE (14:00)
--- NOTE | 2019-12-16 14:02 | PHYS DOC ---
Past History Past Medical History: Diabetes, GERD Additional Past Medical Histor: obesuty, chronic back pain Past Surgical History: Appendectomy, Cholecystectomy, Hysterectomy, T onsillectomy Alcohol Use: None Drug Use: None General Adult HPI: HPI: Patient is a 44-year-old female who arrives in the emergency department via EMS. The patient states that she tripped over a broom that was left in the hallway in her home, and she fell onto the wall, striking her left elbow and arm against the wall. She is complaining of pain diffusely in her arm, she states mostly her elbow, but seems to also have significant humerus tenderness to palpation. Any movement of the arm worsens her pain. There are no alleviating factors to her symptoms. She was given intranasal fentanyl by EMS without significant improvement in her symptoms. She states that she does take hydrocodone at home chronically for pain as needed, but does not take it regularly. Review of Systems: Review of Systems: Constitutional: Denies fever or chills Eyes: Denies change in visual acuity HENT: Denies nasal congestion or sore throat Respiratory: Denies cough or shortness of breath Cardiovascular: Denies chest pain or edema GI: Denies abdominal pain, nausea, vomiting, bloody stools or diarrhea : Denies dysuria Musculoskeletal: Denies back pain or joint pain, other than as noted in the HPI Integument: Denies rash Neurologic: Denies headache, focal weakness or sensory changes Heart Score: Risk Factors: Risk Factors: DM, Current or recent (<one month) smoker, HTN, HLP, family history of CAD, obesity. Risk Scores: Score 0 - 3: 2.5% MACE over next 6 weeks - Discharge Home Score 4 - 6: 20.3% MACE over next 6 weeks - Admit for Clinical Observation Score 7 - 10: 72.7% MACE over next 6 weeks - Early Invasive Strategies Current Medications: Current Meds: Current Medications Medications (Trade) Dose Ordered Sig/Jack Start Time Stop Time Status Last Admin Dose Admin Oxycodone/ Acetaminophen (Percocet 5/325) 1 tab 1X ONCE 12/16/19 14:00 12/16/19 14:01 UNV Allergies: Allergies: Allergies Coded Allergies Type Severity Reaction Last Updated Verified morphine Allergy Intermediate Itching 04/12/18 Yes cephalexin Allergy Mild vomiting 04/12/18 Yes Physical Exam: PE: PHYSICAL EXAM: CONSTITUTIONAL: Well developed, well nourished HEAD: normocephalic, atraumatic EENT: PERRL, EOMI. Conjunctivae normal color, sclerae non-icteric; moist mucous membranes. NECK: Supple, non-tender; no meningismus. There is full, painless range of motion of the cervical spine, without any focal bony midline tenderness to palpation. LUNGS: Lungs CTA, breathing even and unlabored. Normal air movement. HEART: Regular rate and rhythm, no murmur CHEST: No deformity; non-tender ABDOMEN: The abdomen is soft, and non-tender, no masses or bruits. EXTREM: There is tenderness to palpation of the left arm diffusely, from the left proximal humerus, through the shaft and distal humerus, the left elbow and forearm, the wrist and hand are relatively nontender. The maximal tenderness to palpation is in the area of the mid and distal humerus on the left. Distal PMS are intact, there is a strong radial pulse, normal range of motion of the hand and wrist. Remainder the extremities are atraumatic, with normal ROM; no deformity, no calf tenderness. Normal pulses palpable in all extremities. There is no pedal edema. SKIN: No rash; no diaphoresis NEURO: Alert; normal speech and cognition; CN's grossly intact; strength grossly intact without focal deficit. BACK: No CVA TTP. There is no bony tenderness to palpation of the thoracic or lumbar spine. EKG: EKG: [] Radiology/Procedures: Radiology/Procedures: PROCEDURE: ELBOW LEFT 3V AP and lateral left humerus radiographs 12/16/2019 CLINICAL HISTORY: Fall with injury to the left arm. Two AP and two lateral digital radiographs of the left humerus were obtained. An acute comminuted fracture of the left proximal left humeral metaphysis/diaphysis in the region of the left humeral neck is seen. The major distal fracture fragment is mildly displaced medially. No dislocation is noted. No additional fracture is seen IMPRESSION: Acute comminuted fracture of the left humeral neck. Three-view left elbow radiographs 12/16/2019 CLINICAL HISTORY: Fall with injury to the left elbow. Portable AP, lateral and oblique digital radiographs left elbow were obtained. No fracture or dislocation left elbow is seen. There is no radiographic evidence of a joint effusion. IMPRESSION: No fracture or dislocation of the left elbow is seen. AP and lateral left forearm radiographs 12/16/2019 CLINICAL HISTORY: Fall with injury to the left forearm. AP and lateral digital radiographs left forearm were obtained. No fracture or dislocation of the left forearm is seen. No radiopaque foreign body is noted. IMPRESSION: No fracture or dislocation of the left forearm is seen.[] Course & Med Decision Making: Course & Med Decision Making Pertinent Imaging studies reviewed. (See chart for details) [] 2:45 PM: The patient's condition remains stable. I discussed x-ray findings with the patient, the need for close orthopedic follow-up, immobilization with a sling (a shoulder immobilizer will not fit on the patient), and return precautions were discussed in detail. I discussed taking the Percocet INSTEAD of her hydrocodone, not in addition to it, the patient verbalized understanding. 4:05 PM: I have paged Dr. Wilson while the patient was in the emergency department, orthopedics at [place], but he was in surgery and did not return the call. He called her back at this time, reviewed the patient's x-rays, and feels that she would benefit from surgery, which she would like to arrange for tomorrow. I will contact the patient and inform her of this, and have her contact Dr. Wilson's office. Dr. Wilson stated that his office will try and get a hold of the patient as well as they have access to her medical & personal information. [place] Disclaimer: Chaya Disclaimer: This electronic medical record was generated, in whole or in part, using a voice recognition dictation system. Departure Departure: Impression: Primary Impression: Fx humeral neck Disposition: HOME/RESIDENCE PRIOR TO ADM Condition: STABLE Referrals: YOKO ALLISON MD (PCP) Patient Instructions: Humerus Fracture, Treated with Immobilization Additional Instructions: follow-up with orthopedics at [facility], call [phone] to schedule an appointment. Scripts Oxycodone HCl/Acetaminophen (Percocet 5-325 mg Tablet) 1 Each Tablet 1 TAB PO Q6HRS PRN for PAIN MDD 3 Tablet(s), #20 TAB 0 Refills Prov: THUY BOLES MD 12/16/19 Justification of Admission: Justification of Admission: Justification of Admission Dx: N/A THUY BOLES MD Dec 16, 2019 14:02
--- NOTE | 2019-12-16 14:33 | RAD ---
AP and lateral left humerus radiographs 12/16/2019 CLINICAL HISTORY: Fall with injury to the left arm. Two AP and two lateral digital radiographs of the left humerus were obtained. An acute comminuted fracture of the left proximal left humeral metaphysis/diaphysis in the region of the left humeral neck is seen. The major distal fracture fragment is mildly displaced medially. No dislocation is noted. No additional fracture is seen IMPRESSION: Acute comminuted fracture of the left humeral neck. Three-view left elbow radiographs 12/16/2019 CLINICAL HISTORY: Fall with injury to the left elbow. Portable AP, lateral and oblique digital radiographs left elbow were obtained. No fracture or dislocation left elbow is seen. There is no radiographic evidence of a joint effusion. IMPRESSION: No fracture or dislocation of the left elbow is seen. AP and lateral left forearm radiographs 12/16/2019 CLINICAL HISTORY: Fall with injury to the left forearm. AP and lateral digital radiographs left forearm were obtained. No fracture or dislocation of the left forearm is seen. No radiopaque foreign body is noted. IMPRESSION: No fracture or dislocation of the left forearm is seen. Electronically signed by: Sin Mcghee MD (12/16/2019 2:30 PM) [place] [id number]
[2019-12-16] MEDS ORDERED: OXYC-325 PO (14:49)
[2019-12-16 14:57] VITALS: BP 109/62
== END 2019-12-16 14:57 | disposition home or self-care (01) ==
LOC: ER 13:52
DX: S42.292A Other displaced fracture of upper end of left humerus, initial encounter for closed fracture (principal); E11.9 Type 2 diabetes mellitus without complications; K21.9 Gastro-esophageal reflux disease without esophagitis; G89.29 Other chronic pain; Z88.5 Allergy status to narcotic agent; Z88.1 Allergy status to other antibiotic agents; W01.198A Fall on same level from slipping, tripping and stumbling with subsequent striking against other object, initial encounter; Y93.89 Activity, other specified; Y92.89 Other specified places as the place of occurrence of the external cause; Y99.8 Other external cause status
CPT/HCPCS: 73060; 73080; 73090; 99284

== ENCOUNTER → 2019-12-31 | Outpatient (CLI) | payer BC, OTHER ==
[2019-12-16 14:57] VITALS: BP 109/62
[~2019-12-31] MED LIST changes: +OXYC-325 PO
--- NOTE | 2019-12-31 13:40 | RAD ---
EXAM: Left humerus radiograph 12/31/2019 12:00 AM CLINICAL INDICATION:Arm pain COMPARISON:Left humerus radiograph 12/16/2019 TECHNIQUE:AP and lateral views of the left humerus FINDINGS:There is new plate-screw fixation of the proximal humeral fracture. Hardware appears intact. The fracture is improved in alignment. Fracture lines are less conspicuous due to superimposed hardware. Alignment at the shoulder and elbow is grossly maintained. IMPRESSION:Interval ORIF of proximal humerus fracture, improved in alignment. No obvious hardware complication. Electronically signed by: Florence Ghosh MD (12/31/2019 1:37 PM) [id number]
== END | disposition home or self-care (01) ==
LOC: DXRAD 10:07
PROVIDERS: ATTEND Physician Assistant
DX: S42.202A Unspecified fracture of upper end of left humerus, initial encounter for closed fracture (principal); X58.XXXA Exposure to other specified factors, initial encounter; Y93.89 Activity, other specified; Y92.89 Other specified places as the place of occurrence of the external cause; Y99.8 Other external cause status
CPT/HCPCS: 73090

== ENCOUNTER → 2020-01-28 | Outpatient (CLI) | payer BC, OTHER ==
--- NOTE | 2020-01-28 17:02 | RAD ---
INDICATION: Reason: HX LEFT HUMERUS FX / Spl. Instructions: / History: COMPARISON: December 16, 2019 IMPRESSION: Left humerus: 3 views obtained. Plate and screws are seen at the left humerus traversing the previously identified proximal humerus fracture. Alignment is improved compared to preoperative images. Electronically signed by: Héctor Nash MD (01/28/2020 4:59 PM) [id number]
== END ==
LOC: DXRAD 10:38
PROVIDERS: ATTEND Physician Assistant
DX: S42.202A Unspecified fracture of upper end of left humerus, initial encounter for closed fracture (principal); X58.XXXA Exposure to other specified factors, initial encounter; Y93.89 Activity, other specified; Y92.89 Other specified places as the place of occurrence of the external cause; Y99.8 Other external cause status
CPT/HCPCS: 73060

== ENCOUNTER → 2020-03-24 | Outpatient (CLI) | payer BC, OTHER ==
--- NOTE | 2020-03-24 11:27 | RAD ---
EXAMINATION: HUMERUS LEFT CLINICAL HISTORY: Left humerus fracture follow-up TECHNIQUE: HUMERUS LEFT Number of Images/Views: 2 COMPARISON: 01/28/2020 12/16/2019 FINDINGS: Intact lateral plate and screw fixation hardware along the proximal humerus. Hardware remains in similar alignment with no evidence of complication. Healing proximal humerus fracture with subtle radiolucent fracture plane is still suggested. Joints at the shoulder and elbow unremarkable on limited evaluation. IMPRESSION: Healing left proximal humerus fracture status post ORIF. No evidence of hardware complication. Electronically signed by: Parish Dykes DO (03/24/2020 11:23 AM) [id number]
== END | disposition home or self-care (01) ==
LOC: DXRAD 08:59
PROVIDERS: ATTEND Physician Assistant
DX: S42.302D Unspecified fracture of shaft of humerus, left arm, subsequent encounter for fracture with routine healing (principal); Z96.698 Presence of other orthopedic joint implants; X58.XXXD Exposure to other specified factors, subsequent encounter
CPT/HCPCS: 73060

== ENCOUNTER → 2020-04-21 | Outpatient (CLI) | payer BC, OTHER ==
--- NOTE | 2020-04-21 09:57 | RAD ---
Two-view left humerus HISTORY: Status post fracture AP lateral views Comparison March 24, 2020 There is a fracture of the proximal humerus with a lateral overlying plate and screws. There is gross anatomic alignment. There is little healing changes seen. The hardware appears grossly intact. IMPRESSION: Status post fracture of the proximal left humerus and repair. No change from prior study. Electronically signed by: Camacho Fontaine III, MD (04/21/2020 9:54 AM) [id number]
== END ==
LOC: DXRAD 09:35
PROVIDERS: ATTEND Physician Assistant
DX: S42.202A Unspecified fracture of upper end of left humerus, initial encounter for closed fracture (principal); X58.XXXA Exposure to other specified factors, initial encounter; Y93.89 Activity, other specified; Y92.89 Other specified places as the place of occurrence of the external cause; Y99.8 Other external cause status
CPT/HCPCS: 73060

== ENCOUNTER 2020-06-22 04:25 | Emergency (ER) | payer BC, OTHER ==
[~2020-06-22] VITALS: Ht 172.7 cm; Wt 183.0 kg
--- NOTE | 2020-06-22 04:35 | PHYS DOC ---
Past History Past Medical History: Depression, Diabetes, GERD, High Cholesterol, Other Additional Past Medical Histor: obesuty, chronic back pain (SYL HARPER MD) Past Surgical History: Appendectomy, Cholecystectomy, Colectomy, Hysterectomy, Oophorectomy, Tonsillectomy, Other Additional Past Surgical Histo: bladder lift x 2, cyst from breast and under arm; bone spurs knee (SYL HARPER MD) Alcohol Use: Occasionally Drug Use: None (SYL HARPER MD) General Adult HPI: HPI: ".. I am having severe pain down here on the left.. I did have a bariatric gastric bypass surgery at approximate month ago... I did call my surgeon there and he said advise having severe pain go to the nearest emergency department.... I am also Covid positive as of Friday.... Everyone in my family are Covid positive... I have been maintaining my diet for my bariatric surgery.... But I got really severe pain down here on the left.... Now I did have a resection of my lower bowel for diverticulitis in the past.... Just the pain never went away last night.... It started after eating sausage at about 6 PM.. Patient is a 44 year old female who presents with above hx and complaints severe left lower quadrant pain. Has had some loose stools. No history of constipation. Recently underwent bariatric surgery at . Patient has had multiple other surgeries appendectomy, cholecystectomy, hysterectomy, resection of sigmoid diverticulitis, laparoscopic surgeries, and the recent bariatric surgery at 1 month ago. Patient has a history of chronic recurrent lower abdomen pain. Patient has history of hyperlipidemia osteoarthritis, hypothyroidism, multiple allergies, morbid obesity, diabetes and hypertension. Patient denies previous history of kidney stones. Diagnosed Friday as being Covid positive. Multiple other family members are Covid positive (except 1 son). Patient states she no longer smokes. (SYL HARPER MD) Review of Systems: Review of Systems: Constitutional: Denies fever or chills Eyes: Denies change in visual acuity HENT: Denies nasal congestion or sore throat Respiratory: Denies cough or shortness of breath Cardiovascular: Denies chest pain or edema GI: Complains of severe left lower quadrant abdominal pain, nausea,. Vomiting, bloody stools . Patient has had some diarrhea : Denies dysuria Musculoskeletal: Denies back pain or joint pain Integument: Denies rash Neurologic: Denies headache, focal weakness or sensory changes Endocrine: Denies polyuria or polydipsia Lymphatic: Denies swollen glands Psychiatric: Denies depression or anxiety (SYL HARPER MD) Family History: Family History: There is a family history of lung cancer with father, renal cancer and blood clots. (SYL HARPER MD) Current Medications: Current Meds: See nursing for home meds (SYL HARPER MD) Allergies: Allergies: Allergies Coded Allergies Type Severity Reaction Last Updated Verified morphine Allergy Intermediate Itching 12/16/19 Yes cephalexin Allergy Mild vomiting 12/16/19 Yes (SYL HARPER MD) Physical Exam: PE: Constitutional: Moderate acute distress, non-toxic appearance. [] HENT: Normocephalic, atraumatic, bilateral external ears normal, oropharynx moist, no oral exudates, nose swollen turbinates and clear rhinorrhea Eyes: PERRLA, EOMI, conjunctiva normal, no discharge. [] Neck: Normal range of motion, no tenderness, supple, no stridor. More than 17 inches circumference Cardiovascular:Heart rate regular rhythm, no murmur [] Lungs & Thorax: Bilateral breath sounds clear to auscultation [] Abdomen: Bowel sounds normal, soft,, no masses, no pulsatile masses. Multiple surgery scars. Large pannus. Localizes pain in left lower quadrant. Rebound to left lower quadrant. Skin: Warm, dry, no erythema, no rash. [] Back: No tenderness, no CVA tenderness. [] Extremities: No tenderness, no cyanosis, no clubbing, ROM intact, ankle edema. [] Neurologic: Alert and oriented X 3, normal motor function, normal sensory function, no focal deficits noted. [] Psychologic: Affect anxious, judgement normal, mood normal. [] (SYL HARPER MD) Current Patient Data: Labs: Laboratory Tests Test 06/22/20 04:05 06/22/20 07:14 White Blood Count 8.5 x10^3/uL Red Blood Count 4.88 x10^6/uL Hemoglobin 15.6 g/dL Hematocrit 47.5 % Mean Corpuscular Volume 97 fL Mean Corpuscular Hemoglobin 32 pg Mean Corpuscular Hemoglobin Concent 33 g/dL Red Cell Distribution Width 15.3 % Platelet Count 171 x10^3/uL Neutrophils (%) (Auto) 47 % Lymphocytes (%) (Auto) 39 % Monocytes (%) (Auto) 7 % Eosinophils (%) (Auto) 6 % Basophils (%) (Auto) 1 % Neutrophils # (Auto) 4.0 x10^3uL Lymphocytes # (Auto) 3.3 x10^3/uL Monocytes # (Auto) 0.6 x10^3/uL Eosinophils # (Auto) 0.5 x10^3/uL Basophils # (Auto) 0.1 x10^3/uL Prothrombin Time 11.3 SEC Prothromb Time International Ratio 1.1 Activated Partial Thromboplast Time 24 SEC Maternal Serum HCG Beta Subunit 2 mIU/mL Sodium Level 140 mmol/L Potassium Level 3.1 mmol/L Chloride Level 104 mmol/L Carbon Dioxide Level 26 mmol/L Anion Gap 10 Blood Urea Nitrogen 7 mg/dL Creatinine 1.0 mg/dL Estimated GFR (Cockcroft-Gault) 59.7 Glucose Level 175 mg/dL Calcium Level 8.9 mg/dL Total Bilirubin 0.9 mg/dL Direct Bilirubin 0.5 mg/dL Aspartate Amino Transf (AST/SGOT) 92 U/L Alanine Aminotransferase (ALT/SGPT) 80 U/L Alkaline Phosphatase 94 U/L Creatine Kinase 74 U/L Troponin I Quantitative < 0.017 ng/mL Total Protein 7.5 g/dL Albumin 3.6 g/dL Lipase 107 U/L Urine Collection Type Unknown Urine Color Susi Urine Clarity Turbid Urine pH 5.5 Urine Specific [place] >=1.030 Urine Protein 30 mg/dl Urine Glucose (UA) Neg mg/dL Urine Ketones (Stick) 15 mg/dL Urine Blood Neg Urine Nitrite Neg Urine Bilirubin Neg Urine Urobilinogen Dipstick 1.0 mg/dL Urine Leukocyte Esterase Neg Urine RBC 0 /HPF Urine WBC 1-4 /HPF Urine Squamous Epithelial Cells Few /LPF Urine Bacteria Many /HPF Urine Mucus Marked /LPF Current Medications Medications (Trade) Dose Ordered Sig/Jack Route PRN Reason Start Time Stop Time Status Last Admin Dose Admin Lactated Ringer's 1,000 ml @ 1,000 mls/hr Q1H IV 06/22/20 05:00 06/22/20 05:59 DC 06/22/20 05:06 Diphenhydramine HCl (Benadryl) 25 mg 1X ONCE IVP 06/22/20 05:00 06/22/20 05:01 DC 06/22/20 05:05 Prochlorperazine Edisylate (Compazine) 10 mg 1X ONCE IV 06/22/20 05:00 06/22/20 05:01 DC 06/22/20 05:05 Ketorolac Tromethamine (Toradol 30mg Vial) 30 mg 1X ONCE IVP 06/22/20 06:00 06/22/20 06:01 DC 06/22/20 05:55 Lactated Ringer's 1,000 ml @ 1,000 mls/hr 1X ONCE IV 06/22/20 06:00 06/22/20 06:59 DC 06/22/20 05:56 Iohexol (Omnipaque 300 Mg/ml) 75 ml 1X ONCE IV 06/22/20 06:30 06/22/20 06:31 DC 06/22/20 06:17 Info (Do NOT chart on this entry -- for MONITORING) 1 each PRN DAILY PRN MC SEE COMMENTS 06/22/20 06:15 06/24/20 06:14 (VENKATA RANGEL DO) EKG: EKG: [] (SYL HARPER MD) Radiology/Procedures: Radiology/Procedures: CT pending at shift change. [][place] [address] IMAGING REPORT Signed PATIENT: MALORIE GUERRA ACCOUNT: [id number] : 1975 LOCATION: ER AGE: 44 SEX: F EXAM STATUS: REG ER ORD. PHYSICIAN: SYL HARPER MD REASON: Abdomen pain, post op bariatric surgery PROCEDURE: ACUTE ABDOMEN SERIES INDICATION: Reason: Abdomen pain, post op bariatric surgery / Spl. Instructions: / History: COMPARISON: March 2017 IMPRESSION: 4 views of the chest and abdomen obtained. Linear opacities at the left lower lung which could be from scarring or atelectasis. Cardiac silhouette is unremarkable. Surgical clips are seen at the abdomen. Calcifications of the pelvis can be seen with phleboliths. Degenerative changes of the hips. Air scattered throughout the large and small bowel in a nonspecific but not grossly obstructive pattern. Electronically signed by: Amanda George MD (06/22/2020 5:52 AM) DESKTOP- [id number] DICTATED AND SIGNED BY: AMANDA GEORGE MD DATE: 06/22/20 0549 CC: SYL HARPER MD; YOKO ALLISON MD ~MTH0 0 (SYL HARPER MD) Radiology/Procedures: [place] [address] IMAGING REPORT Signed PATIENT: MALORIE GUERRA ACCOUNT: [id number] : 1975 LOCATION: ER AGE: 44 SEX: F EXAM STATUS: REG ER ORD. PHYSICIAN: VENKATA RANGEL DO REASON: diffuse abdominal pain. hx recent bowel resection Omni 300 75cc PROCEDURE: CT ABD PELV W/ IV CONTRST ONLY INDICATION: Reason: diffuse abdominal pain. hx recent bowel resection Omni 300 75cc / Spl. Instructions: / History: . COMPARISON: March 2017 TECHNIQUE: Axial CT images obtained through the abdomen and pelvis with contrast. One or more of the following individualized dose reduction techniques were utilized for this examination: 1. Automated exposure control; 2. Adjustment of the mA and/or kV according to patient size; 3. Use of iterative reconstruction technique. FINDINGS: Linear opacities at the lung bases could be from atelectasis or scarring. Poor contrast bolus. Abdominal aorta is not aneurysmal. There is scattered plaque seen. Calcifications within the liver. Liver is low density. Nonspecific but can be seen with fatty infiltration. There is also a more focal region of low density adjacent to falciform which is commonly from focal fat. No peripancreatic fluid collection. There is repeat demonstration of some presumed prominent lymph nodes adjacent to liver and pancreas with calcifications within. This was also on prior. Splenic calcified granulomas. Nodular thickening of the left adrenal gland measuring up to 11 mm again seen. Horseshoe kidney. Urinary bladder is partially distended. No hydronephrosis. There is suspected suture line at the cecum which could be from appendectomy changes. Postoperative appearance of the stomach post bypass. There is sclerosis at the pubic symphysis and degenerative changes of the bilateral hips with osseous excrescence. IMPRESSION: * No evidence of bowel obstruction. * Horseshoe kidney without hydronephrosis. * Sclerosis at the pubic symphysis is again seen and could be from degenerative changes or chronic pubic symphysitis. Electronically signed by: Amanda George MD (06/22/2020 6:49 AM) DESKTOP- [id number] DICTATED AND SIGNED BY: AMANDA GEORGE MD DATE: 06/22/20 0636 CC: SYL HARPER MD; VEKNATA RANGEL DO; YOKO ALLISON MD ~MTH0 0 (VENKATA RANGEL DO) Heart Score: Risk Factors: Risk Factors: DM, Current or recent (<one month) smoker, HTN, HLP, family history of CAD, obesity. Risk Scores: Score 0 - 3: 2.5% MACE over next 6 weeks - Discharge Home Score 4 - 6: 20.3% MACE over next 6 weeks - Admit for Clinical Observation Score 7 - 10: 72.7% MACE over next 6 weeks - Early Invasive Strategies (SYL HARPER MD) Course & Med Decision Making: Course & Med Decision Making Pertinent Labs and Imaging studies reviewed. (See chart for details) Pt. endorsed to Dr. Rangel at shift change, he will make disposition. Impression: 1. Lt. Lower Abdomen Pain 2. Hx. + COVID 3. Mild Hypokalemia 3.1 4. DM = 175 5. Mobid Obesity 6. Recent bariatric surgery-gastric bypass [facility] [] (SYL HARPER MD) Course & Med Decision Making I have received signout on the patient's emergency department care from Dr. Garcia. We discussed the history, physical exam findings, completed and pending laboratory results and imaging studies. We have also discussed the current treatment plan and expected clinical course. Please refer to further update notes for additional information regarding the patient's final diagnosis and disposition. In brief patient is a 44-year-old female who presents with chief complaint of abdominal pain. She does have complicated surgical history. Advanced CT imaging was obtained and shows no acute surgical abnormality. Labs been overall reassuring. Urinalysis without obvious signs of infection. Urine culture pending. On my assessment patient's abdomen is benign. She has tolerated p.o. and her vital signs been stable. I do feel she is appropriate for discharge home. She was given strict 12-24 return precautions patient expressed understanding. Instructed to follow-up with her primary care physician in the next 2 to 3 days. Stable for discharge home. I provided verbal discharge instructions regarding their emergency department diagnosis. If you had any diagnostic studies ( Labs or Xray's, CAT scan, Ultrasound ) have your PCP (Primary Care Physician) review them with you since there may be results that require further follow up or investigation. Prognosis, expected clinical course, and return precautions were reviewed. I answered the patients questions and instructed them to return if any new or worsening symptoms develop. The patient expressed understanding of the instructions and reported that all of their questions had been answered. (VENKATA RANGEL DO) Dragon Disclaimer: Dragon Disclaimer: This electronic medical record was generated, in whole or in part, using a voice recognition dictation system. (SYL HARPER MD) Departure Departure: Impression: Primary Impression: Abdominal pain Qualified Codes: R10.84 - Generalized abdominal pain Disposition: 01 DC HOME SELF CARE/HOMELESS Condition: STABLE Referrals: YOKO ALLISON MD (PCP) Additional Instructions: Discharge Abdominal Pain Re-Check Precautions: I'm unsure of the specific cause of your abdominal pain. However, at this point I feel that you are low risk for a life threatening emergency and that discharge from the Emergency Department is safe. There is a very small possibility that you are just too early in your clinical course for our physical exam/labs/imaging to ascertain whether or not you have an emergent condition that could potentially cause permanent disability or be life threatening. As such, it is very important that you follow up with your primary doctor or return to the Emergency Department in 12-24 hours for re-assessment and further evaluation if clinically indicated. If you develop new or worsening symptoms then you should return to the Emergency Department immediately. Home Care Instructions: Abdominal Pain Many things may cause abdominal pain. Your ER visit might not show the exact reason you are having pain. In some cases, additional time is needed to determine if the cause is serious. Therefore you may be told to go home and watch for any changes or worsening in your condition. Before that, we may not know if you need more testing, or if hospitalization or surgery is necessary. If its not something serious, the pain may go away without treatment or get better with simple things like avoiding certain foods or medications. In the ER, your doctor asks you questions, examines you and in some cases, may order tests. These help doctors decide if the pain is from something serious. Tests are not always done and may not provide a definite answer. There can still be a problem, even with normal test results. Abdominal pain may be caused by something serious (like appendicitis), which is not obvious right away. Because of this, another checkup is needed to make sure you are OK. It is VERY IMPORTANT to follow up for a repeat exam, especially if you have any symptoms that are not going away or are getting worse. We recommend that you RETURN TO THE EMERGENCY ROOM IN 8-12 HOURS to be rechecked. If you cannot, you may follow up with your primary care doctor or clinic. It is important that you follow all of the instructions below. RETURN TO THE EMERGENCY ROOM IMMEDIATELY IF: The pain does not go away or gets worse. You have a fever. You keep throwing up and cannot keep anything down. You pass bloody or black stools. You develop new symptoms. HOME CARE INSTRUCTIONS Come back to the ER (or see your doctor) in 8-12 hours. DO NOT take laxatives unless directed by your doctor. Avoid the use of alcohol Take pain medicine only as directed by your doctor. Only take [id number] or prescription medicine as directed by your doct or. Try a clear liquid diet (broth, tea, jello, water) for the next 12-24 hours. Slowly move to a bland diet as tolerated. Do not eat greasy, fatty or spicy foods. Once you start getting better, go back to a normal, healthy diet, slowly over a few days. DISCHARGE PT INSTRUCTIONS: YOU HAVE BEEN EVALUATED FOR ABDOMINAL PAIN. HOWEVER, WE ARE UNABLE TO PROVIDE A DEFINITE CAUSE OF YOUR SYMPTOMS. EVEN THOUGH YOUR TESTS MAY HAVE BEEN NORMAL, YOU STILL COULD HAVE A SERIOUS CAUSE FOR YOUR ABDOMINAL PAIN, INCLUDING APPENDICITIS. THE BEST TEST TO DETERMINE IF YOU HAVE A SERIOUS CAUSE IS RE-EXAMINATION OVER TIME. WE USED TO ADMIT PATIENTS TO THE HOSPITAL FOR THIS, BUT CAN NOW ALLOW YOU TO GO HOME, & RETURN TO OUR ER THE NEXT DAY FOR RE- EXAMINATION. THUS, WE WOULD LIKE YOU TO RETURN TO OUR ER TOMORROW FOR YOUR RE- EVALUATION. (IF YOUR SYMPTOMS HAVE GONE AWAY, THEN YOU DO NOT NEED TO RETURN.) IF YOUR SYMPTOMS GET WORSE BETWEEN NOW & THEN, YOU SHOULD RETURN IMMEDIATELY & NOT WAIT UNTIL TOMORROW. SYMPTOMS TO LOOK FOR WORSENING PAIN, HIGH FEVER, PERSISTENT VOMITING [NOT CONTROLLED BY MEDICINE], AND/OR OVERALL WORSENING OF YOUR CONDITION. Scripts Ondansetron Hcl (ZOFRAN) 4 Mg Tablet 4 MG PO TID PRN PRN for NAUSEA, #9 TAB Prov: VENKATA RANGEL DO 06/22/20 Dicyclomine Hcl (DICYCLOMINE HCL) 20 Mg Tablet 20 MG PO QIDPRN PRN for PAIN, #16 TAB Prov: VENKATA RANGEL DO 06/22/20 Dragon Disclaimer This chart was dictated in whole or in part using Voice Recognition software in a busy, high-work load, and often noisy Emergency Department environment. It may contain unintended and wholly unrecognized errors or omissions. (SYL HARPER MD) Dragon Disclaimer This chart was dictated in whole or in part using Voice Recognition software in a busy, high-work load, and often noisy Emergency Department environment. It may contain unintended and wholly unrecognized errors or omissions. (SYL HARPER MD) SYL HARPER MD Jun 22, 2020 04:35 VENKATA RANGEL DO Jun 22, 2020 08:19
[2020-06-22] MEDS ORDERED: diphenhydrAMINE 50 MG/ML VIAL IVP ONE (05:00)
[2020-06-22] MEDS ORDERED: IV RINGERS SOLUTION,LACTATED 1,000 ML IV SCH (05:00)
[2020-06-22] MEDS ORDERED: PROCHLORPERAZINE 10 MG/2 ML VIAL. IV ONE (05:00)
[2020-06-22 05:09] LABS: BASO # 0.1 x10^3/uL (0.0-0.2); BASO % 1 % (0-3); EOS # 0.5 x10^3/uL (0.0-0.7); EOS % 6 % (0-3); HEMATOCRIT 47.5 % (36.0-47.0); HEMOGLOBIN 15.6 g/dL (12.0-15.5); LYMPH # 3.3 x10^3/uL (1.0-4.8); LYMPH % 39 % (24-48); MEAN CORPUSCULAR HEMOGLOBIN 32 pg (25-35); MEAN CORPUSCULAR HGB CONC 33 g/dL (31-37); MEAN CORPUSCULAR VOLUME 97 fL (79-100); MONO # 0.6 x10^3/uL (0.0-1.1); MONO % 7 % (0-9); NEUT % 47 % (31-73); PLATELET COUNT 171 x10^3/uL (140-400); RED BLOOD COUNT 4.88 x10^6/uL (3.50-5.40); RED CELL DISTRIBUTION WIDTH 15.3 % (11.5-14.5); WHITE BLOOD COUNT 8.5 x10^3/uL (4.0-11.0)
[2020-06-22 05:23] LABS: CALCIUM 8.9 mg/dL (8.5-10.1); GFR 59.7; POTASSIUM 3.1 mmol/L (3.5-5.1)
[2020-06-22 05:35] LABS: ALBUMIN 3.6 g/dL (3.4-5.0); DIRECT BILIRUBIN 0.5 mg/dL (0.0-0.2); TOTAL BILIRUBIN 0.9 mg/dL (0.2-1.0); TOTAL PROTEIN 7.5 g/dL (6.4-8.2)
--- NOTE | 2020-06-22 05:54 | RAD ---
INDICATION: Reason: Abdomen pain, post op bariatric surgery / Spl. Instructions: / History: COMPARISON: March 2017 IMPRESSION: 4 views of the chest and abdomen obtained. Linear opacities at the left lower lung which could be from scarring or atelectasis. Cardiac silhouet te is unremarkable. Surgical clips are seen at the abdomen. Calcifications of the pelvis can be seen with phleboliths. Degenerative changes of the hips. Air scattered throughout the large and small edelmira l in a nonspecific but not grossly obstructive pattern. Electronically signed by: Héctor Nash MD (06/22/2020 5:52 AM) DESKTOP-[id number]
[2020-06-22] MEDS ORDERED: KETOROLAC 30 MG/ML VIAL. IVP ONE (06:00)
[2020-06-22] MEDS ORDERED: IV RINGERS SOLUTION,LACTATED 1,000 ML IV ONE (06:00)
[2020-06-22] MEDS ORDERED: CONTRAST GIVEN. MC PRN (06:15)
[2020-06-22] MEDS ORDERED: IOHEXOL 300 MG/ML 75 ML VIAL. IV ONE (06:30)
--- NOTE | 2020-06-22 06:52 | RAD ---
INDICATION: Reason: diffuse abdominal pain. hx recent bowel resection Omni 300 75cc / Spl. Instructio ns: / History: . COMPARISON: March 2017 TECHNIQUE: Axial CT images obtained through the abdomen and pelvis with contrast. One or more of the following individualized dose reduction techniques were utilized for this examinat ion: 1. Automated exposure control; 2. Adjustment of the mA and/or kV according to patient size; 3 . Use of iterative reconstruction technique. FINDINGS: Linear opacities at the lung bases could be from atelectasis or scarring. Poor contrast bolus. Abdominal aorta is not aneurysmal. There is scattered plaque seen. Calcifications within the liver. Liver is low density. Nonspecific but can be seen with fatty infiltr ation. There is also a more focal region of low density adjacent to falciform which is commonly from focal fat. No peripancreatic fluid collection. There is repeat demonstration of some presumed prominent lymph no lanette adjacent to liver and pancreas with calcifications within. This was also on prior. Splenic calcified granulomas. Nodular thickening of the left adrenal gland measuring up to 11 mm again seen. Horseshoe kidney. Urin armando bladder is partially distended. No hydronephrosis. There is suspected suture line at the cecum which could be from appendectomy changes. Postoperative appearance of the stomach post bypass. There is sclerosis at the pubic symphysis and degenerative changes of the bilateral hips with osseous excrescence. IMPRESSION: * No evidence of bowel obstruction. * Horseshoe kidney without hydronephrosis. * Sclerosis at the pubic symphysis is again seen and could be from degenerative changes or chronic p ubic symphysitis. Electronically signed by: Héctor Nash MD (06/22/2020 6:49 AM) DESKTOP-[id number]
[2020-06-22 08:14] LABS: COLOR,URINE AMBER
[2020-06-22 08:15] LABS: BACTERIA,URINE MANY /HPF (0-FEW); BILIRUBIN,URINE NEG (NEG); CLARITY,URINE TURBID; GLUCOSE,URINE NEG (NEG); NITRITE,URINE NEG (NEG); RBC,URINE 0 /HPF (0-2); SQUAMOUS EPITHELIAL CELL,UR FEW /LPF
[2020-06-22] MEDS ORDERED: DICY20TA3 PO (08:18)
[2020-06-22] MEDS ORDERED: ONDA4TAB7 PO (08:18)
[2020-06-22 08:30] VITALS: BP 148/60
[2020-06-22 08:37] LABS: BARBITURATES NEG (NEG); BENZODIAZEPINES NEG (NEG); CANNABINOIDS NEG (NEG); COCAINE NEG (NEG); METHADONE NEG (NEG); OPIATES POS (NEG); PHENCYCLIDINE NEG (NEG)
[2020-06-22 08:40] LABS: AMPHETAMINE/METHAMPHETAMINE NEG (NEG)
== END 2020-06-22 08:33 | disposition home or self-care (01) ==
LOC: ER 04:25
DX: R10.32 Left lower quadrant pain (principal); E87.6 Hypokalemia; E11.9 Type 2 diabetes mellitus without complications; R19.7 Diarrhea, unspecified; R11.2 Nausea with vomiting, unspecified; E66.01 Morbid (severe) obesity due to excess calories; K21.9 Gastro-esophageal reflux disease without esophagitis; E78.00 Pure hypercholesterolemia, unspecified; G89.29 Other chronic pain; Z68.44 Body mass index [BMI] 60.0-69.9, adult; Z98.84 Bariatric surgery status; Z86.19 Personal history of other infectious and parasitic diseases; Z90.49 Acquired absence of other specified parts of digestive tract; Z90.89 Acquired absence of other organs; Z90.710 Acquired absence of both cervix and uterus; Z90.722 Acquired absence of ovaries, bilateral; Z88.5 Allergy status to narcotic agent; Z88.1 Allergy status to other antibiotic agents
CPT/HCPCS: 36415; 74022; 74177; 80048; 80076; 80307; 81001; 82550; 83690; 84484; 84702; 85025; 85610; 85730; 87086; 96361; 96374; 96375; 99285; J0780; J1200; J1885; J7120; Q9967

== ENCOUNTER 2021-04-13 02:33 | Emergency (ER) | payer BC, OTHER ==
[~2021-04-13] VITALS: Ht 172.7 cm; Wt 89.0 kg
[~2021-04-13 02:33] MED LIST changes: +DICY20TA3 PO; -OMEP40CA45 PO; +OMEP40CA7 PO; +ONDA4TAB7 PO
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
[2021-04-13] MEDS ORDERED: CONTRAST GIVEN. MC PRN (04:15)
[2021-04-13] MEDS: oxyCODONE/APAP 5/325 1 TAB TABLET PO ONE (04:50)
[2021-04-13] MEDS: IOHEXOL 300 MG/ML 75 ML VIAL. IV ONE (05:19)
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
[2021-04-13] MEDS ORDERED: HYDROmorphone PF 2 MG/ML VIAL ONE (05:54)
[2021-04-13 06:00] VITALS: BP 110/52
[2021-04-13] MEDS: HYDROmorphone PF 2 MG/ML VIAL IM ONE (06:15)
[2021-04-13] MEDS ORDERED: HYDR-1179 PO (06:26)
== END 2021-04-13 06:20 | disposition home or self-care (01) ==
LOC: ER 02:33
DX: S00.531A Contusion of lip, initial encounter (principal); R07.89 Other chest pain; Q63.1 Lobulated, fused and horseshoe kidney; E11.9 Type 2 diabetes mellitus without complications; K21.9 Gastro-esophageal reflux disease without esophagitis; R10.11 Right upper quadrant pain; E78.5 Hyperlipidemia, unspecified; Z90.49 Acquired absence of other specified parts of digestive tract; Z88.6 Allergy status to analgesic agent; Z90.710 Acquired absence of both cervix and uterus
CPT/HCPCS: 71260; 74177; 96372; 99285; J1170; Q9967